=== PATIENT | male | born 1945 | race Caucasian/White ===

== ENCOUNTER 2021-04-03 15:01 | Emergency (ER) | payer MEDICARE, OTHER ==
[2021-04-03] MEDS ORDERED: Sodium Chloride 0.9% 10 ML Syringe FLUSH PRN (15:03)
[2021-04-03] MEDS ORDERED: Aspirin 81 MG Tab.Chew PO ONE (15:16)
[2021-04-03] MEDS ORDERED: Nitroglycerin 0.4 MG Tab.SL SL ONE (15:31)
--- NOTE | 2021-04-03 15:39 | EDM.PDOC ---
ED HPI GENERAL MEDICAL PROBLEM - General Chief Complaint: Chest Pain Stated Complaint: chest Pain Time Seen by Provider: 04/03/21 15:10 Source of Information: Reports: Patient, RN History Limitations: Reports: No Limitations - History of Present Illness INITIAL COMMENTS - FREE TEXT/NARRATIVE: Pt. presents to ER with complaints of intermittent chest discomfort/burning/pressure that started this AM. Pt. states that he was also nauseated this AM. He states that he had a physical therapy appointment this AM in [place], and reported that he was having discomfort prior to, during and after the appointment. Pt. states that after the appointment, he took a nitro which he states did help the discomfort. He states that the discomfort intensified again and he took a second nitro. He was mildly diaphoretic on arrival to ER according to nursing staff. Pt. reports that he is somewhat nauseated, and feels gassy. he states that he noticed this this AM. He states that the discomfort in his chest goes across his chest but is worse in the L pectoral area. He states that it extends up into his neck as well. He states that he also has some epigastric discomfort associated with it. He states that the discomfort today is dissimilar to the discomfort he had when he had pain secondary to CAD. Pt. has a history of CAD including bypass with restenosis, necessitating stenting performed in July. I do not have access to his medical record, so specifics of which vessels/areas of the heart involved are unclear. Pt. reports that he has been having intermittent chest discomfort for several months and is scheduled to undergo a stress test on . 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 Pt. has a history of cholecystitis, and what sounds like cholangitis when he was on vacation in [place] in 2018. He states that he was critically ill at that time and spent a month on the hospital with that event. Pt. denies any cough, chest congestion, sore throat, rhinorrhea, fever, chills, diarrhea, ill contacts. Onset: Today Onset Date: 04/03/21 - Related Data Allergies Allergy/AdvReac Type Severity Reaction Status Date / Time No Known Allergies Allergy Verified 04/03/21 15:16 Home Meds: Home Meds Clopidogrel [Plavix] 75 mg PO DAILY 04/03/21 [History] Metoprolol Succinate 100 mg PO BID 04/03/21 [History] Pantoprazole [ProTONIX] 40 mg PO BID 04/03/21 [History] Ranolazine [Ranexa] 500 mg PO BID 04/03/21 [History] Rosuvastatin [Crestor] 10 mg PO MOTH 04/03/21 [History] amLODIPine [Norvasc] 7.5 mg PO DAILY 04/03/21 [History] ED ROS GENERAL - Review of Systems Review Of Systems: See Below Constitutional: Reports: No Symptoms HEENT: Reports: No Symptoms Respiratory: Denies: Shortness of Breath, Wheezing, Cough, Sputum, Hemoptysis Cardiovascular: Reports: Chest Pain. Denies: Dyspnea on Exertion, Palpitations, Syncope Endocrine: Reports: No Symptoms GI/Abdominal: Reports: No Symptoms : Reports: No Symptoms Musculoskeletal: Reports: No Symptoms Skin: Reports: No Symptoms Neurological: Reports: No Symptoms Psychiatric: Reports: No Symptoms Hematologic/Lymphatic: Reports: No Symptoms Immunologic: Reports: No Symptoms ED EXAM, GENERAL - Physical Exam Exam: See Below Exam Limited By: No Limitations General Appearance: Alert, WD/WN, No Apparent Distress Head: Atraumatic, Normocephalic Neck: Normal Inspection, Supple, Non-Tender, Full Range of Motion Respiratory/Chest: No Respiratory Distress, Lungs Clear, No Accessory Muscle Use, Chest Non-Tender Cardiovascular: Normal Peripheral Pulses, Regular Rate, Rhythm, No Edema, No JVD, No Murmur Peripheral Pulses: 4+: Radial (R) GI/Abdominal: Soft, No Organomegaly, No Distention, Other (epigastric discomfort) (Male) Exam: No Hernia Rectal (Males) Exam: Deferred Back Exam: Normal Inspection, Full Range of Motion Extremities: Normal Inspection, Normal Range of Motion, Non-Tender, No Pedal Edema, Normal Capillary Refill Neurological: Alert, Oriented, CN II-XII Intact, Normal Cognition, Normal Gait, Normal Reflexes, No Motor/Sensory Deficits Psychiatric: Normal Affect, Normal Mood Skin Exam: Warm, Dry, Intact, Normal Color, No Rash Lymphatic: No Adenopathy #1 Interpretation Rhythm: NSR Martin: Normal P-Wave: Present QRS: Normal ST-T: Normal QT: Normal Course - Vital Signs Last Recorded V/S: Last Vital Signs Temp 36.2 C 04/03/21 15:03 Pulse 71 04/03/21 15:03 Resp 14 04/03/21 15:03 BP 155/82 H 04/03/21 15:34 Pulse Ox 100 04/03/21 15:03 - Orders/Labs/Meds Orders: Active Orders 24 hr Category Date Time Status EKG Documentation Completion [RC] ASDIRECTED Care 04/03/21 15:03 Active EKG Documentation Completion [RC] ASDIRECTED Care 04/03/21 15:19 Active EKG Documentation Completion [RC] STAT Care 04/03/21 15:16 Active Chest 1V Frontal [CR] Stat Exams 04/03/21 15:24 Ordered Sodium Chloride 0.9% [Saline Flush] Med 04/03/21 15:03 Active 10 ml FLUSH ASDIRECTED PRN Saline Lock Insert [OM.PC] Routine Oth 04/03/21 15:03 Ordered EKG 12 Lead [EK] Stat Ther 04/03/21 15:19 Ordered Medication Orders Sodium Chloride (Sodium Chloride 0.9% 10 Ml Syringe) 10 ml FLUSH ASDIRECTED PRN PRN Reason: Keep Vein Open Labs: Laboratory Tests 04/03/21 04/03/21 04/03/21 Range/Units 15:20 15:20 15:20 WBC 6.3 (4.0-10.2) K/uL RBC 4.62 (4.33-5.41) M/uL Hgb 14.9 (13.1-16.8) g/dL Hct 45.3 (39.0-49.0) % MCV 98.1 H (84.0-98.0) fL MCH 32.3 (28.2-33.3) pg MCHC 32.9 (31.7-36.0) g/dL RDW 13.4 (11.2-14.1) % Plt Count 219 (150-350) K/uL Neut % (Auto) 57.1 (45.0-80.0) % Lymph % (Auto) 32.2 (10.0-50.0) % [place] % (Auto) 9.4 (2.0-14.0) % Eos % (Auto) 1.0 (0.0-5.0) % Baso % (Auto) 0.3 (0.0-2.0) % Neut # (Auto) 3.59 (1.40-7.00) K/uL Lymph # (Auto) 2.02 (0.50-3.50) K/uL [place] # (Auto) 0.59 (0.00-1.00) K/uL Eos # (Auto) 0.06 (0.00-0.50) K/uL Baso # (Auto) 0.02 (0.00-0.20) K/uL PT 10.7 (9.6-11.3) SEC INR 1.0 APTT 23.0 L (23.6-29.8) SEC D-Dimer, Quantitative (0-400) ng/mL Sodium 142 (136-145) mmol/L Potassium 4.1 (3.5-5.1) mmol/L Chloride 106 (98-107) mmol/L Carbon Dioxide 25.9 (21.0-32.0) mmol/L Anion Gap 10.1 (7-15) meq/L BUN 13 (7-18) mg/dL Creatinine 1.11 (0.51-1.17) mg/dL Est Cr Clr Drug Dosing TNP Estimated GFR (MDRD) > 60 mL/min Glucose 99 (70-99) mg/dL Calcium 8.7 (8.5-10.1) mg/dL Phosphorus 2.8 (2.6-4.7) mg/dL Magnesium 2.0 (1.8-2.4) mg/dL Total Bilirubin 0.5 (0.2-1.0) mg/dL AST 29 (15-37) U/L ALT 36 (12-78) U/L Alkaline Phosphatase 111 (46-116) IU/L Troponin I High Sens 6 (<=76) ng/L C-Reactive Protein < 0.2 (<=0.9) mg/dL NT-Pro-B Natriuret Pep 157 H (0-125) pg/mL Total Protein 8.0 (6.4-8.2) g/dL Albumin 3.7 (3.4-5.0) g/dL TSH, Ultra Sensitive 0.812 (0.358-3.740) mIU/mL 04/03/21 Range/Units 15:20 WBC (4.0-10.2) K/uL RBC (4.33-5.41) M/uL Hgb (13.1-16.8) g/dL Hct (39.0-49.0) % MCV (84.0-98.0) fL MCH (28.2-33.3) pg MCHC (31.7-36.0) g/dL RDW (11.2-14.1) % Plt Count (150-350) K/uL Neut % (Auto) (45.0-80.0) % Lymph % (Auto) (10.0-50.0) % [place] % (Auto) (2.0-14.0) % Eos % (Auto) (0.0-5.0) % Baso % (Auto) (0.0-2.0) % Neut # (Auto) (1.40-7.00) K/uL Lymph # (Auto) (0.50-3.50) K/uL [place] # (Auto) (0.00-1.00) K/uL Eos # (Auto) (0.00-0.50) K/uL Baso # (Auto) (0.00-0.20) K/uL PT (9.6-11.3) SEC INR APTT (23.6-29.8) SEC D-Dimer, Quantitative 117 (0-400) ng/mL Sodium (136-145) mmol/L Potassium (3.5-5.1) mmol/L Chloride (98-107) mmol/L Carbon Dioxide (21.0-32.0) mmol/L Anion Gap (7-15) meq/L BUN (7-18) mg/dL Creatinine (0.51-1.17) mg/dL Est Cr Clr Drug Dosing Estimated GFR (MDRD) mL/min Glucose (70-99) mg/dL Calcium (8.5-10.1) mg/dL Phosphorus (2.6-4.7) mg/dL Magnesium (1.8-2.4) mg/dL Total Bilirubin (0.2-1.0) mg/dL AST (15-37) U/L ALT (12-78) U/L Alkaline Phosphatase (46-116) IU/L Troponin I High Sens (<=76) ng/L C-Reactive Protein (<=0.9) mg/dL NT-Pro-B Natriuret Pep (0-125) pg/mL Total Protein (6.4-8.2) g/dL Albumin (3.4-5.0) g/dL TSH, Ultra Sensitive (0.358-3.740) mIU/mL Meds: Medications Generic Name Dose Route Start Last Admin Trade Name Lizzette PRN Reason Stop Dose Admin Sodium Chloride 10 ml 04/03/21 15:03 Sodium Chloride 0.9% 10 Ml Syringe FLUSH ASDIRECTED PRN Keep Vein Open Discontinued Medications Generic Name Dose Route Start Last Admin Trade Name Freq PRN Reason Stop Dose Admin Al Hydroxide/Mg Hydroxide 30 ml 04/03/21 15:46 04/03/21 15:56 Gi Cocktail Oral Solution 30 Ml PO 04/03/21 15:47 30 ml ONETIME ONE Administration Aspirin 324 mg 04/03/21 15:16 04/03/21 15:22 Aspirin 81 Mg Tab.Chew PO 04/03/21 15:17 324 mg ONETIME ONE Administration Nitroglycerin 0.4 mg 04/03/21 15:31 04/03/21 15:34 Nitroglycerin 0.4 Mg Tab.Sl SL 04/03/21 15:32 0.4 mg ONETIME ONE Administration - Radiology Interpretation Free Text/Narrative:: 1 view chest x-ray did not reveal any acute pathology as interpreted by myself. - Re-Assessments/Exams Free Text/Narrative Re-Assessment/Exam: Pt. was given aspirin 324mg PO on arrival to ER. He was complaining of continued discomfort/tightness in his chest. He was given a third dose of SL nitro. He reported that this did not help the discomfort, and he reported feeling worse; generally unwell and increased L pectoral/epigastric pain. Pt. was given a GI cocktail and reported significant improvement in the discomfort. He reported near complete resolution in discomfort, only complaining of some mild L sided upper abdominal/epigastric discomfort. Departure - Departure Time of Disposition: 16:32 Disposition: Home, Self-Care 01 Clinical Impression: Atypical chest pain - Discharge Information Instructions: Nonspecific Chest Pain, Adult, [id number] Referrals: PCP,Not In Area [Primary Care Provider] - Forms: ED Department Discharge Additional Instructions: Home to rest. Your EKG and your labs were all within normal labs. Follow-up with cardiology as directed. Return to ER if you have worsening discomfort, shortness of breath, palpitations, or lightheadedness. Mayes diet today. Minimize consumption of fatty/spicy food and alcohol. Sepsis Event Note (ED) - Focused Exam Vital Signs: Vital Signs Temp Pulse Resp BP BP Pulse Ox 04/03/21 15:34 155/82 H 04/03/21 15:03 36.2 C 71 14 148/75 H 100 - My Orders Last 24 Hours: My Active Orders 04/03/21 15:03 EKG Documentation Completion [RC] ASDIRECTED Sodium Chloride 0.9% [Saline Flush] 10 ml FLUSH ASDIRECTED PRN Saline Lock Insert [OM.PC] Routine 04/03/21 15:16 EKG Documentation Completion [RC] STAT 04/03/21 15:19 EKG Documentation Completion [RC] ASDIRECTED EKG 12 Lead [EK] Stat 04/03/21 15:24 Chest 1V Frontal [CR] Stat - Assessment/Plan Last 24 Hours: My Active Orders 04/03/21 15:03 EKG Documentation Completion [RC] ASDIRECTED Sodium Chloride 0.9% [Saline Flush] 10 ml FLUSH ASDIRECTED PRN Saline Lock Insert [OM.PC] Routine 04/03/21 15:16 EKG Documentation Completion [RC] STAT 04/03/21 15:19 EKG Documentation Completion [RC] ASDIRECTED EKG 12 Lead [EK] Stat 04/03/21 15:24 Chest 1V Frontal [CR] Stat Plan: Pt. was discharged. He reported feeling much improved at time of discharge. Advised to follow-up with cardiology next week. Continue with current medications. Return to ER if he has worsening discomfort, shortness of breath, palpitations, or lightheadedness. He is free to call the ER at any time if he has any questions/concerns.
[2021-04-03] MEDS ORDERED: GI Cocktail Oral Solution 30 ML PO ONE (15:46)
[2021-04-03 15:55] LABS: ANION GAP 10.1 meq/L (7-15); CHLORIDE,CL 106 mmol/L (98-107); SODIUM,NA 142 mmol/L (136-145)
== END 2021-04-03 16:25 | disposition home or self-care (01) ==
LOC: LL.ED 15:01
DX: R07.89 Other chest pain (principal); Z79.02 Long term (current) use of antithrombotics/antiplatelets; Z79.899 Other long term (current) drug therapy
CPT/HCPCS: 36415; 71045; 80053; 83735; 83880; 84100; 84443; 84484; 85025; 85379; 85610; 85730; 86140; 93005; 99285; A9270; 93010; 99284